=== PATIENT | male | born 1960 | race Caucasian/White ===

== ENCOUNTER 2018-10-12 14:04 | Emergency (ER) | payer BC ==
[2018-10-12] MEDS ORDERED: DIPH,PERTUS(ACELL)TETVAC-LF 0.5 ML VIAL IM ONE (14:39)
[2018-10-12] MEDS ORDERED: AMOXIC-POT CLAV 875MG STARTER 2 EACH TABLET PO STA (14:39)
--- NOTE | 2018-10-12 14:40 | ED ---
Animal Bite HPI - General Chief Complaint: Animal Bite Stated Complaint: Dog bite Time Seen by Provider: 10/12/18 14:20 Source: patient, RN notes reviewed, old records reviewed Mode of arrival: ambulatory Limitations: no limitations - History of Present Illness Initial Comments: 58-year-old male presents for spermatozoa tingling of the dog bite over his right wrist. Patient reports he was bit by his brother's dog. Patient reports his tetanus is not up-to-date. Dog is up-to-date on vaccinations. She reports she's had a recent right rotator cuff surgery.Patient denies any recent fever, chills, shortness of breath, chest pain, back pain, abdominal pain, nausea vomiting, numbness or tingling, dysuria or hematuria, constipation or diarrhea, headaches or visual changes, or any other current symptoms - Related Data Previous Rx's Medication Instructions Recorded Amoxic-Pot Clav 875-125Mg 1 tab PO BID 7 Days #14 tab 10/12/18 [Augmentin 875-125] Allergies Allergy/AdvReac Type Severity Reaction Status Date / Time No Known Allergies Allergy Verified 10/12/18 14:17 Review of Systems ROS Statement: Those systems with pertinent positive or pertinent negative responses have been documented in the HPI. ROS Other: All systems not noted in ROS Statement are negative. Past Medical History Past Medical History: No Reported History History of Any Multi-Drug Resistant Organisms: None Reported Past Surgical History: Orthopedic Surgery Past Psychological History: No Psychological Hx Reported Smoking Status: Current every day smoker Past Alcohol Use History: Occasional Past Drug Use History: None Reported General Exam - General Exam Comments Initial Comments: 58-year-old male. Alert and oriented. No distress. Limitations: no limitations General appearance: alert, in no apparent distress Head exam: Present: atraumatic, normocephalic, normal inspection Eye exam: Present: normal appearance, PERRL, EOMI. Absent: scleral icterus, conjunctival injection, periorbital swelling ENT exam: Present: normal exam, mucous membranes moist Neck exam: Present: normal inspection. Absent: tenderness, meningismus, lymphadenopathy Respiratory exam: Present: normal lung sounds bilaterally. Absent: respiratory distress, wheezes, rales, rhonchi, stridor Cardiovascular Exam: Present: regular rate, normal rhythm, normal heart sounds. Absent: systolic murmur, diastolic murmur, rubs, gallop, clicks GI/Abdominal exam: Present: soft, normal bowel sounds. Absent: distended, tenderness, guarding, rebound, rigid Extremities exam: Present: normal inspection, full ROM, normal capillary refill. Absent: tenderness, pedal edema, joint swelling, calf tenderness Right Shoulder Exam: Present: full ROM. Absent: normal inspection (Patient is in a shoulder sling due to recent rotator cuff surgery on in July) Elbow exam: Present: normal inspection, full ROM Forearm Wrist exam: Present: full ROM, laceration (3cm linear laceration over anterior wrist), other (3 1cm puncture wounds over dorsum of wrist. ). Absent: normal inspection, tenderness, swelling, abrasion Hand Wrist exam: Present: normal inspection, full ROM Neuro motor exam: Present: wrist extension intact Neurosensory exam: Present: radial nerve intact, ulnar nerve intact, median nerve intact Vascular: Present: normal capillary refill Back exam: Present: normal inspection Psychiatric exam: Present: normal affect, normal mood Skin exam: Present: warm, dry, intact, normal color. Absent: rash Course Vital Signs 10/12/18 10/12/18 14:15 16:10 Temperature 98.5 F 98.6 F Pulse Rate 69 64 Respiratory 16 18 Rate Blood Pressure 132/66 127/78 O2 Sat by Pulse 96 97 Oximetry Procedures - Laceration Laceration #1 Site: upper extremity (R anterior wrist) Size (cm): 3 (one linear lac 3cm anterior wrist, 3 small gaping puncture wounds ) Description: linear Anesthetic Used: lidocaine 1% Anesthesia Technique: local infiltration Amount (mls): 5 Pre-repair: wound explored, irrigated extensively Type of Sutures: nylon Size of Sutures: 5-0 Number of Sutures: 7 Technique: simple, interrupted Patient Tolerated Procedure: well, no complications Medical Decision Making - Medical Decision Making Patient is a 58-year-old male presents for shortness of the dog bite over the right wrist. I did obtain vaccinations. The dog that multiple people as well today. At this time patient's has a 3 cm anterior wrist laceration and 4 small puncture wounds over the wrist. 3 the puncture wounds were loosely closed with one suture. The larger laceration over the anterior wrist was closed with 4 sutures. Patient presents wounds were thoroughly irrigated. Patient was started on Augmentin. Given updated today. He was placed in a Jun wrap around the wrists and he was placed back into his rotator cuff sling. 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 Discussed monitoring for infection. Patient understands history plan will comply. Return parameters were discussed. - Radiology Data Radiology results: report reviewed Normal Wrist Xray, soft tissue laceration noted. Disposition Clinical Impression: Dog bite Disposition: HOME SELF-CARE Condition: Good Instructions (If sedation given, give patient instructions): Animal Bite (ED) Additional Instructions: Please return to the emergency room in 8-10 days to have sutures removed. Please leave wound covered for the first 24-48 hours and then leave open to air after that time. Please use clean soap and water to clean the suture area to prevent scabbing over the top of your sutures. Please watch for any signs of infection which may include but not limited to increased pain, swelling, redness , fever or chills. Please return to the emergency room if any signs of infection do occur. Please return to the emergency room for any other concerns or complications. Prescriptions: Amoxic-Pot Clav 875-125Mg [Augmentin 875-125] 1 tab PO BID 7 Days #14 tab Is patient prescribed a controlled substance at d/c from ED?: No Referrals: Laurel Christiansen DO [Primary Care Provider] - 1-2 days Time of Disposition: 16:03
[2018-10-12] MEDS ORDERED: LIDOCAINE 1% INJ 10MG/ML (20 ML MDV) SQ ONE (15:21)
--- NOTE | 2018-10-12 15:25 | XR ---
Right wrist HISTORY: Laceration from dog bite, pain 4 views of the right wrist. Arthropathy changes are present within the wrist. There is no radiopaque foreign body. Alignment is m aintained. Lucency present in the soft tissues compatible with patient's history of lacerations. No f racture or dislocation. IMPRESSION: Soft tissue injuries. Osteoarthritis.
[2018-10-12 16:15] VITALS: BP 127/78; PULSE 64; RESP 18; TEMP 98.6
== END 2018-10-12 16:15 | disposition home or self-care (01) ==
LOC: EC 14:04
DX: S61.511A Laceration without foreign body of right wrist, initial encounter (principal); F17.200 Nicotine dependence, unspecified, uncomplicated; Z98.890 Other specified postprocedural states; Z23 Encounter for immunization; W54.0XXA Bitten by dog, initial encounter
CPT/HCPCS: 99284; 12002; 90471; 73110; 90715; J2001